=== PATIENT | male | born 1970 | race Caucasian/White ===

== ENCOUNTER 2016-08-01 10:35 | Day surgery (SDC) | payer MEDICARE ==
[~2016-08-01] VITALS: Ht 175.3 cm; Wt 109.1 kg
[2016-08-01 11:13] LABS: BASOPHILS 0.5 % (0.0-2.0); EOSINOPHILS 0.5 % (0-7); HEMATOCRIT 46.9 % (42.0-54.0); HEMOGLOBIN 16.2 g/dL (13.5-17.5); IMMATURE GRANULOCYTES 0.6 % (0-5); LYMPHOCYTES 24.4 % (15-50); MCH 31.6 pg (26.0-34.0); MCHC 34.5 g/dL (31.0-37.0); MCV 91.6 fL (80.0-100.0); MEAN PLATELET VOLUME 10.6 fL (7.4-10.4); MONOCYTES 10.7 % (2-11); NEUTROPHILS 63.3 % (40-80); PLATELET COUNT 276 10x3/uL (130-400); RBC 5.12 10x6/uL (4.20-6.10); RDW 13.8 % (11.5-14.5); WBC 10.2 10x3/uL (4.8-10.8)
[2016-08-01 11:29] LABS: CALC OSMOLALITY 280 mosm/kg (275-300); CALCIUM 9.4 mg/dL (8.5-10.1); CARBON DIOXIDE 25.1 mmol/L (21.0-32.0); CHLORIDE - SERUM 99 mmol/L (98-107); CREATININE - SERUM 1.1 mg/dL (0.6-1.3); GLUCOSE 257 mg/dL (74-106); POTASSIUM - SERUM 3.8 mmol/L (3.5-5.1); SODIUM 136 mmol/L (136-145); UREA NITROGEN 12 mg/dL (7-18); eGFR NON AFRICAN AMERICAN 77 mL/min (90-120)
[2016-08-01] MEDS ORDERED: FLOVENT HFA 11012 GM INH (11:37)
[2016-08-01] MEDS ORDERED: COREG6.25 MG PO (11:37)
[2016-08-01] MEDS ORDERED: LANTUS INSULIN10 ML SC (11:38)
[2016-08-01] MEDS ORDERED: GLUCOTROL 5 MG T5 MG PO (11:38)
[2016-08-01] MEDS ORDERED: REMERON45 MG PO (11:40)
[2016-08-01] MEDS ORDERED: LATUDA80 MG PO (11:40)
[2016-08-01] MEDS ORDERED: EFFEXOR75 MG PO (11:41)
[2016-08-01] MEDS ORDERED: VENTOLIN HFA18 GM INH (11:41)
[2016-08-01 12:04] VITALS: BP 130/87; Ht 175.3 cm; Wt 109.1 kg
--- NOTE | 2016-08-01 16:35 | NUR ---
PATIENT HAS URINATED LARGE AMOUNT IN TOILET, AMBULATED AROUND ROOM WITHOUT DIZZINESS OR UNSTEADINESS, RIGHT HAND PIV DC'D WITH TIP INTACT, PATIENT DRESSED IN PERSONAL CLOTHING. DISCHARGE INSTRUCTIONS REVIEWED WITH PATIENT, DISCHARGED HOME VIA WHEELCHAIR TO PRIVATE VEHICLE WITH FATHER
--- NOTE | 2016-08-23 12:04 | OP ---
PATIENT NAME: ABBY FREITAS MEDICAL RECORD: [id number] :70 LOCATION:[facility] ADMISSION DATE: SURGEON: HUMA MYERS DO DATE OF OPERATION: 08/01/2016 PROCEDURE: Colonoscopy. INDICATION: Hematochezia and lower abdominal pain, as well as a family history of colon cancer in his grandfather and his mother, who was recently diagnosed in her 60s. REFERRING PHYSICIAN: Haven Garcia MD. ADMINISTERED MEDICATIONS: Propofol 75 mg. DESCRIPTION OF PROCEDURE: The procedure, indications, preparation and potential complications were explained to the patient, who indicated understanding and signed the corresponding consent forms. IV anesthesia was administered by nurse telecom coordinator. Continuous pulse oximetry and blood pressure monitoring were used throughout the procedure as well as supplemental oxygen. The quality of the preparation was excellent. The patient was placed in the left lateral decubitus position. The colonoscope was introduced through the rectum and advanced under direct visualization to the cecum, confirmed by the appendiceal orifice and ileocecal valve. Careful visualization was performed and the instrument was withdrawn. The patient tolerance was excellent. The procedure was not difficult other than the significant amount of time required for multiple polyps which are incompletely removed at this time. FINDINGS: 1. There was normal mucosa throughout the entire colon. 2. Protruding lesions: The patient was noted to have multiple flat and sessile medium and large sized polyps present during insertion of the colonoscope. Polyps ranged in size from 6 mm up to 2.5 cm. In the ascending colon, 4 separate polyps were removed, which were approximately 1 cm in size. All of these polyps in the ascending colon were lifted with saline injection and endoscopic mucosal resection was performed for complete removal and retrieval of the polyps. In the transverse colon, 7 polyps also ranging from approximately 8 mm to 1.5 cm in size were removed without saline injection. Snare cautery polypectomy was performed on these polyps. The polyps were retrieved. In the transverse colon, multiple polyps were visualized, which were not retrieved at this time due to the length of the procedure time under anesthesia as well as the difficulty associated with these polyps and time required for removal. The patient will be returning for further removal within a month. A large semi-pedunculated, approximately 1.5 cm polyp was removed from the sigmoid colon using snare cautery polypectomy and was completely retrieved. Again, multiple polyps were visualized in the descending colon along with the transverse, as well as the sigmoid colon which will be removed at a later date. COMPLICATIONS: None. ESTIMATED BLOOD LOSS: Minimal. PLAN: Repeat colonoscopy within 1 month's time for further removal of polyps until the colon has been effectively eradicated of polyps. OPERATIVE REPORT [id number] ABBY FREITAS TRANSINT:[id number] Voice Confirmation ID: [id number] DOCUMENT ID: [id number] HUMA MYERS DO at 1204 CC: [id number] DICTATION DATE: 08/01/16 1524 DEAN OF GRADUATE STUDIES: 08/01/16 2248 [facility] 08/01/16 [id number] [place] [address]
== END 2016-08-01 16:35 | disposition home or self-care (01) ==
LOC: D.OPS 10:35
PROVIDERS: Anesthesiology
DX: D12.2 Benign neoplasm of ascending colon (principal); D12.3 Benign neoplasm of transverse colon; D12.5 Benign neoplasm of sigmoid colon; Z80.0 Family history of malignant neoplasm of digestive organs

== ENCOUNTER 2016-10-03 08:54 | Day surgery (SDC) | payer MEDICARE ==
[~2016-10-03] VITALS: Ht 175.3 cm; Wt 109.1 kg
[~2016-10-03 08:54] MED LIST: COREG6.25 MG PO; EFFEXOR75 MG PO; FLOVENT HFA 11012 GM INH; GLUCOTROL 5 MG T5 MG PO; LANTUS INSULIN10 ML SC; LATUDA80 MG PO; REMERON45 MG PO; VENTOLIN HFA18 GM INH
[2016-10-03 10:15] VITALS: BP 116/70; Ht 175.3 cm; Wt 109.1 kg
[2016-10-03 10:58] LABS: HEMATOCRIT 48.9 % (42.0-54.0); HEMOGLOBIN 16.5 g/dL (13.5-17.5); MCHC 33.7 g/dL (31.0-37.0); MCV 91.9 fL (80.0-100.0); MEAN PLATELET VOLUME 10.9 fL (7.4-10.4); RBC 5.32 10x6/uL (4.20-6.10); RDW 13.7 % (11.5-14.5); WBC 8.1 10x3/uL (4.8-10.8)
[2016-10-03 11:26] LABS: CALC OSMOLALITY 278 mosm/kg (275-300); CALCIUM 9.6 mg/dL (8.5-10.1); CHLORIDE - SERUM 102 mmol/L (98-107); POTASSIUM - SERUM 4.3 mmol/L (3.5-5.1); SODIUM 137 mmol/L (136-145); UREA NITROGEN 12 mg/dL (7-18); eGFR NON AFRICAN AMERICAN 86 mL/min (90-120)
[2016-10-03 11:27] LABS: GLUCOSE 191 mg/dL (74-106)
--- NOTE | 2016-10-03 12:06 | NUR ---
1206-TATTOO COLON WITH 2.5CC CRYSTAL INK.
--- NOTE | 2016-10-03 13:27 | NUR ---
1325 PASSED AIR; DIET SERVED
--- NOTE | 2016-10-03 13:55 | NUR ---
DISCHARGE INSTRUCTIONS REVIEWED, DISCHARGED HOME VIA WHEELCHAIR TO PRIVATE VEHICLE WITH FAMILY MEMBER
--- NOTE | 2016-10-06 12:18 | OP ---
PATIENT NAME: ABBY FREITAS MEDICAL RECORD: [id number] :70 LOCATION:[facility] ADMISSION DATE: SURGEON: HUMA MYERS DO DATE OF OPERATION: 10/03/2016 PROCEDURE: Colonoscopy with endoscopic mucosal resection, some mucosal injection of tattoo, and endoclipping for hemostasis. INDICATIONS FOR PROCEDURE: Lower abdominal pain, family history of colon cancer in his grandfather, hematochezia, and known polyps visualized on recent examination. SCOPE: Howbuy video pediatric colonoscope. MEDICATIONS: Propofol 1650 mg IV per anesthesia. ESTIMATED BLOOD LOSS: Less than 3 cc. Withdrawal time greater than 15 minutes. FINDINGS: Informed consent was given. The patient was made comfortable with the above medication. After reaching an adequate level of sedation by slow IV push, the patient was placed on his left side. A digital rectal examination was performed and was normal. The endoscope was then advanced through the anus under direct visualization and advanced to the cecum, evidenced by the appendiceal orifice and ileocecal valve. Scope was then withdrawn slowly as the mucosa was carefully examined. In the ascending colon, there was 2 polyps visualized, which measured approximately 8-mm to 1 cm. Both of these polyps were raised with saline prior to using a hot snare for polypectomy and endoscopic mucosal resection technique. The scope was withdrawn further into the transverse colon where a 4 large polyps measuring from 8-mm in size to 2 cm in size were visualized. Each of these polyps were raised with saline and removed with hot snare polypectomy in endoscopic mucosal resection technique. The scope was further withdrawn to the descending colon where a single small polyp measuring approximately 6-mm in size was visualized as well as a large polyp measuring approximately 2.5 cm in size was visualized. The smaller polyp was removed with hot snare polypectomy alone. The second polyp was lifted with saline at the base of its stalk and removed with a hot snare polypectomy and endoscopic mucosal resection technique. There was a defect left behind. To prevent bleeding, It was close with a single endoclip successfully. A tattoo was placed both proximally and distally to this site. Tattoo was also placed proximally and distally to the 4 large polyps in the transverse colon. The scope was then withdrawn from the patient. The patient tolerated the procedure well and there were no complications. This was a difficult and extended, lengthy procedure. IMPRESSION: Two ascending polyps as described above, removed with hot snare after lifting, 4 transverse polyps as described above, lifted and hot snared as well as tattoo placed, 2 descending colon polyps lifted and hot snared as described above as well as tattoo placement and endoclipping. PLAN AND RECOMMENDATIONS: 1. Discharge home when recovery parameters are met. 2. Continue current diet. 3. Continue current medications. OPERATIVE REPORT [id number] ABBY FREITAS 4. Repeat colonoscopy in 3 months for complete visualization of the colon, biopsies as indicated and cleaning up of any residual tissue, which may be present. If these polyps to show that there is any cancer within them, then a surgical resection after referral to surgery may be considered. We will follow up biopsy specimen results and further recommendations as indicated. TRANSINT:[id number] Voice Confirmation ID: [id number] DOCUMENT ID: [id number] HUMA MYERS DO at 1218 CC: [id number] DICTATION DATE: 10/03/16 1255 GEODETIC SURVEYOR TECHNOLOGIST: 10/03/16 2251 [facility] 10/03/16 [facility] [address] [place] [address]
== END 2016-10-03 13:55 | disposition home or self-care (01) ==
LOC: D.OPS 08:54
PROVIDERS: Anesthesiology
DX: D12.2 Benign neoplasm of ascending colon (principal); D12.3 Benign neoplasm of transverse colon; D12.4 Benign neoplasm of descending colon; K92.1 Melena; Z80.0 Family history of malignant neoplasm of digestive organs; F17.200 Nicotine dependence, unspecified, uncomplicated; E11.9 Type 2 diabetes mellitus without complications; J44.9 Chronic obstructive pulmonary disease, unspecified; J45.909 Unspecified asthma, uncomplicated; Z01.812 Encounter for preprocedural laboratory examination

== ENCOUNTER 2017-01-02 07:21 | Day surgery (SDC) | payer MEDICARE ==
[~2017-01-02] VITALS: Ht 175.3 cm; Wt 117.3 kg
[2017-01-02 08:13] VITALS: BP 149/89; Ht 175.3 cm; Wt 117.3 kg
[2017-01-02 08:32] LABS: BASOPHILS 0.4 % (0-2); EOSINOPHILS 0.7 % (0-7); HEMATOCRIT 45.8 % (42.0-54.0); HEMOGLOBIN 15.7 g/dL (13.5-17.5); IMMATURE GRANULOCYTES 0.5 % (0-5); LYMPHOCYTES 27.7 % (15-50); MCH 31.2 pg (26.0-34.0); MCHC 34.3 g/dL (31.0-37.0); MCV 91.1 fL (80.0-100.0); MEAN PLATELET VOLUME 10.4 fL (7.4-10.4); NEUTROPHILS 59.7 % (40-80); PLATELET COUNT 267 10x3/uL (130-400); RBC 5.03 10x6/uL (4.20-6.10); RDW 14.1 % (11.5-14.5)
[2017-01-02 09:19] LABS: CALC OSMOLALITY 274 mosm/kg (275-300); CALCIUM 8.9 mg/dL (8.5-10.1); CARBON DIOXIDE 23.1 mmol/L (21.0-32.0); CHLORIDE - SERUM 101 mmol/L (98-107); CREATININE - SERUM 0.9 mg/dL (0.6-1.3); GLUCOSE 177 mg/dL (74-106); POTASSIUM - SERUM 3.8 mmol/L (3.5-5.1); SODIUM 136 mmol/L (136-145); UREA NITROGEN 9 mg/dL (7-18); eGFR NON AFRICAN AMERICAN > 90 mL/min (90-120)
--- NOTE | 2017-01-03 14:43 | OP ---
PATIENT NAME: ABBY FREITAS MEDICAL RECORD: [id number] :70 LOCATION:[facility] ADMISSION DATE: SURGEON: HUMA MYERS DO DATE OF OPERATION: 01/02/2017 PROCEDURE: Colonoscopy with polypectomy. INDICATIONS: Family history of colon cancer in grandfather and strong history of numerous colon polyps. His last procedure was 10/03/2016 and over 10 large polyps were removed at that time, one with low-grade atypia in the descending colon. SCOPE: Olympus video pediatric colonoscope. MEDICATIONS: Propofol 400 mg IV per anesthesia. WITHDRAWAL TIME: Approximately 40 minutes. ESTIMATED BLOOD LOSS: Minimal. COMPLICATIONS: None. FINDINGS: Informed consent was given. The patient was made comfortable with the above medication. After reaching an adequate level of sedation by slow IV push, the patient was placed on his left side. A digital rectal examination was performed and was normal. The endoscope was then advanced under direct visualization through the rectum to the cecum and terminal ileum. The scope was slowly withdrawn and mucosa was carefully examined. The prep was good. On this examination as previous exams, there were multiple polyps visualized. There were 3 benign-appearing sessile polyps located in the ascending colon, which measured in size from 4 to 8 mm in diameter. They were all removed using a hot snare in 1 piece and completely retrieved. There were 4 separate polyps located in the descending colon. Three were benign-appearing and sessile and were removed with hot snares in 1 piece and completely retrieved. The final polyp was a site that was previously tattooed and located at 45 cm. On the last procedure, it had some focal low grade atypia. There was some residual tissue visualized here, which was biopsied with cold forceps multiple times. After this, cautery was performed around the entire area and at the base of the remaining polypoid tissue that was removed. In the sigmoid colon, there were 3 polyps, which were benign-appearing and sessile, ranging in size from 3 to 5 mm. They were removed using a combination of hot snare and hot forceps in 1 piece and completely retrieved. There was a single polyp in the rectum, which was benign-appearing and sessile, measuring approximately 5 mm in diameter, which was removed with a hot snare. Retroflexion was performed in the rectum. The scope was then withdrawn from the patient. The patient tolerated the procedure well and there were no complications. IMPRESSION: Multiple polyps as described above. PLAN AND RECOMMENDATIONS: 1. Discharge home when recovery parameters are met. 2. Follow up biopsy specimen results. 3. Continue current medications. 4. Continue current diet. 5. Recall colonoscopy in 1 year due to the excessive number of polyps, which OPERATIVE REPORT [id number] ABBY FREITAS have been removed, pending results of biopsy specimens. If there is continued atypia at the site of the descending polyp located at approximately 45 cm that has been tattooed, a sooner recall may be made for another reevaluation. TRANSINT:[id number] Voice Confirmation ID: [id number] DOCUMENT ID: [id number] HUMA MYERS DO at 1443 CC: [id number] DICTATION DATE: 01/02/17 1013 MACHINE SIGN WRITER: 01/02/17 1220 [facility] 01/02/17 [id number] [place] [address]
== END 2017-01-02 10:55 | disposition home or self-care (01) ==
LOC: D.OPS 07:21
PROVIDERS: Anesthesiology
DX: D12.4 Benign neoplasm of descending colon (principal); D12.5 Benign neoplasm of sigmoid colon; D12.8 Benign neoplasm of rectum; K63.5 Polyp of colon; Z86.010 Personal history of colon polyps; Z80.0 Family history of malignant neoplasm of digestive organs; Z01.812 Encounter for preprocedural laboratory examination

== ENCOUNTER 2018-04-23 06:44 | Day surgery (SDC) | payer MEDICARE ==
[~2018-04-23] VITALS: Ht 175.3 cm; Wt 97.7 kg
--- NOTE | ~2018-04-23 | OP ---
PATIENT NAME: ABBY FREITAS MEDICAL RECORD: [id number] :70 LOCATION:[facility] ADMISSION DATE: SURGEON: HUMA MYERS DO DATE OF OPERATION: 04/23/2018 PROCEDURE: Colonoscopy with polypectomy. INDICATIONS FOR PROCEDURE: Family history positive for colon cancer in the patient's grandfather and the patient has a strong personal history of colon polyps with his last colonoscopy being performed on 01/02/2017. SCOPE: Olympus video pediatric colonoscope. MEDICATIONS: Propofol 450 mg IV per anesthesia. WITHDRAWAL TIME: 29 minutes. ESTIMATED BLOOD LOSS: Minimal. COMPLICATIONS: None. FINDINGS: Informed consent was given. The patient was made comfortable with the above medication. After reaching an adequate level of sedation by slow IV push, the patient was placed on his left side. A digital rectal examination was performed and revealed some enlarged prostate. The endoscope was advanced under direct visualization through the rectum to the cecum, confirmed by the presence of the appendiceal orifice. The endoscope was slowly withdrawn and mucosa was carefully examined. Prep quality was fair. There were 5 polyps visualized on today's examination. The first was located in the ascending colon. It was a benign appearing sessile polyp, which measured approximately 4 mm in diameter. It was removed using a hot snare. The next polyp was located in the descending colon. It was a benign appearing sessile polyp, which measured approximately 4 mm and was removed using a hot snare. In the sigmoid colon, there were 3 separate polyps, which were benign-appearing and sessile. They ranged in size from 3-5 mm in diameter. They were all removed using hot forceps. Retroflexion was performed in the rectum with visualization of grade I internal hemorrhoids without bleeding. The endoscope was withdrawn from the patient. The patient tolerated the procedure well and there were no complications. IMPRESSION: 1. Five polyps as described above, removed using a combination of hot snare and hot forceps. 2. Grade I internal hemorrhoids without bleeding. PLAN AND RECOMMENDATIONS: 1. Discharge home when recovery parameters are met. 2. Follow up biopsy specimen results. 3. High fiber diet. 4. Continue current medications. 5. Recall colonoscopy in 2 years. TRANSINT:[id number] Voice Confirmation ID: [id number] DOCUMENT ID: [id number] OPERATIVE REPORT [id number] ABBY FREITAS HUMA MYERS DO at 1012 CC: [id number] DICTATION DATE: 04/23/18 0904 TRESTLE BUILDER: 04/23/18 1115 [facility] 04/23/18 [address] [place] [address]
[2018-04-23 07:02] LABS: HEMATOCRIT 48.5 % (42.0-54.0); HEMOGLOBIN 16.6 g/dL (13.5-17.5); MCH 31.2 pg (26.0-34.0); MCHC 34.2 g/dL (31.0-37.0); MCV 91.2 fL (80.0-100.0); MEAN PLATELET VOLUME 10.3 fL (7.4-10.4); RBC 5.32 10x6/uL (4.20-6.10); WBC 12.4 10x3/uL (4.8-10.8)
[2018-04-23 07:15] LABS: CALC OSMOLALITY 278 mosm/kg (275-300); CALCIUM 9.6 mg/dL (8.5-10.1); CARBON DIOXIDE 26.4 mmol/L (21.0-32.0); CHLORIDE - SERUM 104 mmol/L (98-107); CREATININE - SERUM 1.1 mg/dL (0.6-1.3); POTASSIUM - SERUM 4.4 mmol/L (3.5-5.1); SODIUM 140 mmol/L (136-145); UREA NITROGEN 9 mg/dL (7-18); eGFR NON AFRICAN AMERICAN 76 mL/min (90-120)
[2018-04-23 07:19] LABS: GLUCOSE 115 mg/dL (74-106)
[2018-04-23 07:25] VITALS: BP 141/86; Ht 175.3 cm; Wt 97.7 kg
== END 2018-04-23 09:47 | disposition home or self-care (01) ==
LOC: D.OPS 06:44
PROVIDERS: Anesthesiology
DX: K63.5 Polyp of colon (principal); K64.0 First degree hemorrhoids

== ENCOUNTER 2019-07-20 16:35 | Inpatient (IN) | payer MEDICARE ==
[~2019-07-20] VITALS: Ht 175.3 cm; Wt 99.2 kg
--- NOTE | ~2019-07-20 | HEMODYNAMI ---
PATIENT:ABBY FREITAS MEDICAL RECORD: [id number] : 70 [id number] ADMISSION DATE: 07/20/19 Generatedon:07/22/201915:53 Patient name: ABBY FREITAS Patient #: [id number] SSN: [id number] : 1970 Date of study: 07/22/2019 Page: Of Hemodynamic Procedure Report Patient Data Patient Demographics Procedure consent was obtained First Name: ABBY Gender: Male Last Name: ZENA : 1970 Middle Initial: D Age: 48 year(s) Patient #: [id number] Race: SSN: [id number] Additional ID: [id number] Contact details [address]: [address] [place] [address] State: [place] City: [place] Zip code: [address] Past Medical History Allergies Allergen Reaction Date Comments Reported Other allergy 07/07/2019 keflex Other allergy 07/22/2019 CEPHALAXIN Admission Admission Data Admission Date: 07/20/2019 Admission Time: 18:22 Arrival Date: 07/22/2019 Arrival Time: 0:00 Admit Source: Other Insurance Payor: Medicare Room #: D.2117 [facility] #: [id number] Height (in.): 69 BSA: 1.91 (m2) Height (cm.): 175.26 BMI: 24.42 (kg/m2) Weight (lbs.): 165.35 Weight (kg.): 75 Lab Results Lab Result Date: 07/22/2019 Lab Result Time: 0:00 Biochemistry Name Units Result Min Max BUN mg/dl 12 --(-*--)-- 7 18 Creatinine mg/dl 0.9 --(-*--)-- 0.6 1.3 eGFR ml/min 90 --(*---)-- 90 120 NONAFRICAN CBC Name Units Result Min Max Hematocrit % 42.9 --(*---)-- 42 54 Hemoglobin g/dl 14.3 --(*---)-- 13.5 17.5 Procedure Procedure Types Cath Procedure Diagnostic Procedure FFR/IVUS FFR Initial FFR Additional PCI Procedure Coronary Stent Coronary Stent Initial x2 Coronary Stent Additional Hemochron ACT Test Procedure Description Procedure Date Procedure Date: 07/22/2019 Procedure Start Time: 15:26 Procedure End Time: 15:50 Procedure Staff Name Function Johnny Salazar MD Performing Physician Karen Lassiter RT Monitor Judy Zimmerman RT Scrub Jayleen Longoria RN Nurse Arianna Graf RT Health Care / Medical Job Titles Indication Coronary risk factors Procedure Data Cath Procedure Fluoroscopy Diagnostic fluoroscopy Total fluoroscopy Time: 4.5 time: 4.5 min min Diagnostic fluoroscopy Total fluoroscopy dose: 486 dose: 486 mGy mGy Contrast Material Contrast Material Type Amount (ml) Isovue 370 100 Entry Location Entry Primary Successful Side Size Upsize Upsize Entry Closure Succes sful Closure Location (Fr) 1 (Fr) 2 (Fr) Remarks Device Remarks Femoral Right 6 Fr Exoseal artery Short Estimated blood loss: 10 ml Procedure Complications No complications Procedure Medications Medication Administration Route Dosage Oxygen etCO2 Nasal cannula 2 l/min Lidocaine 2% added to field 20 Heparin Flush Bag added to field 2 bags (1000units/500ml NS) 0.9% NaCl I.V. 100 ml/hr Versed I.V. 2 mg Fentanyl I.V. 100 mcg Versed I.V. 1 mg Fentanyl I.V. 50 mcg Heparin Bolus I.V. 4000 units Hemodynamics Rest BSA: 1.91 (m2) HGB: 14.3 (g/dl) O2 Consumption: Estimated: 228.32 (ml/min) O2 Co nsumption indexed: Estimated:119.54 (ml/min/m) Heart Rate: 69 (bpm) Snapshots Pre Cath Intra NCS Post Cath Vital Signs Time Heart Resp SPO2 etCO2 NIBP (mmHg) Rhythm Pain Sedation Rate (ipm) (%) (mmHg) Status Level (bpm) 15:16:04 66 15 97 31 133/96(106) NSR (Missing) 10(A) 15:20:12 67 14 95 27.4 120/87(102) NSR (Missing) 10(A) 15:24:17 64 17 94 28.8 114/80(96) NSR (Missing) 10(A) 15:28:23 61 13 94 21.4 109/76(86) NSR (Missing) 9(A) 15:32:25 63 12 94 38.5 112/76(93) NSR (Missing) 9(A) 15:36:31 66 12 93 34.8 118/75(89) NSR (Missing) 9(A) 15:40:38 69 13 94 30.3 111/72(86) NSR (Missing) 9(A) 15:44:40 79 14 95 34.1 112/81(92) NSR (Missing) 10(A) 15:48:44 69 12 95 38.5 121/81(92) NSR (Missing) 10(A) Medications Time Medication Route Dose Verified Delivered Reason Notes Effectiveness by by 15:20:36 Oxygen etCO2 2 Johnny Buffie used for Nasal l/min Martin Longoria RN procedure cannula 15:20:45 Lidocaine 2% added 20ml Johnny Johnny for local to vial Martin Salazar MD anesthetic field 15:20:51 Heparin Flush added 2 Johnny Johnny used for Bag to bags Martin Salazar MD procedure (1000units/500ml field NS) 15:21:01 0.9% NaCl I.V. 100 Johnny Buffie Per physician ml/hr Martin Longoria RN 15:22:12 Versed I.V. 2 mg Johnny Buffie for sedation Martin Longoria RN 15:22:17 Fentanyl I.V. 100 Johnny Buffie for sedation mcg Martin Longoria RN 15:29:53 Versed I.V. 1 mg Johnny Buffie for sedation Martin Longoria RN 15:29:57 Fentanyl I.V. 50 Johnny Buffie for sedation mcg Martin Longoria RN 15:30:45 Heparin Bolus I.V. 4000 Johnny Buffie for verif ied units Martin Longoria RN anticoagulation with dr salazar Procedure Log Time Note 15:02:16 Arianna Graf RT(R) sent for patient. Start room use. 15:04:41 Informed consent obtained and on chart 15:05:28 Indication : Coronary risk factors 15:07:03 Procedure Status Elective Heart Cath (OP), PCI. 15:07:09 Admit Source: Other 15:07:25 Time tracking: Regular hours (M-F 7:00 - 5:00) 15:07:30 Plan of Care:Hemodynamics will remain stable., Cardiac rhythm will remain stable., Comfort level will be maintained., Respiratory function will remain adequate., Patient/ family verbilizes understanding of procedure., Procedure tolerated without complication., Recovers from procedure without complications.. 15:07:46 Patient received from Med II to CCL 3 Alert and oriented. Tansferred to table in Supine position. 15:07:48 Warm blankets applied, and keyona hugger turned on for patient comfort. 15:07:48 Correct patient and procedure confirmed by team. 15:07:49 ECG and BP/O2 sat monitors applied to patient. 15:07:59 H&P Date Dictated: 07/20/2019 Within 30 days and on chart.. 15:08:00 Pre-procedure instructions explained to patient. 15:08:01 Pre-op teaching completed and patient verbalized understanding. 15:08:03 Family unavailable. 15:08:05 Patient NPO since Midnight. 15:08:43 Is the patient allergic to Iodine/contrast media? No. 15:08:45 Was the patient premedicated? N/A 15:08:47 Is patient on blood thinner?Yes 15:09:14 ACC The patient was administered the following blood thiners within the last 24 hours: ACCPlavix 15:09:16 Patient diabetic? Yes. 15:09:44 If diabetic: On Metformin? Yes 15:10:31 Arrival Date: 07/22/2019 12:00:00 AM 15:10:35 Insurance Payor : Medicare 15:11:00 Patient Height : 69 inches 15:11:05 Patient Weight : 165.35 lbs 15:11:12 If on Metformin: Last Dose? 07/21/2019 15:11:13 ----Pre-sedation anethsthesia assessment.---- 15:11:16 Previous problem with sedation/anesthesia? No ? 15:11:17 Snore? Yes 15:11:19 Sleep apnea? No 15:11:20 Deviated septum? No 15:11:21 Opens mouth fully? Yes 15:11:22 Sticks out tongue? Yes 15:11:28 Airway obstruction? Yes COPD 15:11:32 Dentures? Yes IN TIGHT 15:11:36 Pre procedure: right dorsailis pedis pulse 2+ Normal; easily identifiable; not easily obliterated 15:11:39 Patient pain scale 0/10 ?. 15:11:47 Lab results completed and on chart. 15:11:56 IV patent on arrival in right hand with 0.9% NaCl at [facility]. 15:12:32 Lab Result : BUN 12 mg/dl 15:12:32 Lab Result : Creatinine 0.9 mg/dl 15:12:32 Lab Result : eGFR NONAFRICAN 90 ml/min 15:12:32 Lab Result : Hemoglobin 14.3 g/dl 15:12:32 Lab Result : Hematocrit 42.9 % 15:14:04 Risk of Mortality: 0.1 15:14:07 Risk of blood transfusion: 0.2 15:14:10 Risk of ANDREW: 0.6 15:14:13 Right groin area was prepped with chlora-prep and draped in sterile fashion 15:14:14 Alarms reviewed by R. N. 15:14:15 Sharps counted by scrub and verified by R.N. 15:14:19 Stress Test: no; N/A ? 15:14:30 Procedure type changed to Cath procedure, Diagnostic procedure, FFR/IVUS, FFR Initial, FFR Additional, PCI procedure, Coronary Stent, Coronary Stent Initial x2, Coronary Stent Additional, Hemochron ACT Test 15:14:36 Use device set Femoral Dx 15:14:37 ACIST Syringe (45647) opened to sterile field. 15:14:38 Bag Decanter () opened to sterile field. 15:14:38 Medline Cath Pack ([id number]) opened to sterile field. 15:14:40 ACIST Hand Control (04928) opened to sterile field. 15:14:40 ACIST Manifold (50837) opened to sterile field. 15:14:43 EMERALD Guide Wire (339-576) opened to sterile field. 15:14:44 DIAGNOSTIC Multipack 5Fr catheter set ([id number]) opened to sterile field. 15:14:54 Use device set TAUTH PCI 15:14:56 SHEATH 6FR Hollywood (UID594) opened to sterile field. 15:14:59 INFLATOR Merit BasixCompak (IH9684) opened to sterile field. 15:15:05 Vital chart was started 15:15:06 Baseline sample Acquired. 15:15:07 Full Disclosure recording started 15:15:16 Rhythm: sinus rhythm 15:17:42 Patient allergic to Other allergyCEPHALAXIN 15:17:47 Diagnostic Cath Status : Elective 15:20:36 Oxygen 2 l/min etCO2 Nasal cannula was administered by Jayleen Longoria RN; used for procedure; Verbal order read back and verified. 15:20:45 Lidocaine 2% 20ml vial added to field was administered by Johnny Salazar MD; for local anesthetic; Verbal order read back and verified. 15:20:51 Heparin Flush Bag (1000units/500ml NS) 2 bags added to field was administered by Johnny Salazar MD; used for procedure; Verbal order read back and verified. 15:21:01 0.9% NaCl 100 ml/hr I.V. was administered by Jayleen Longoria RN; Per physician; Verbal order read back and verified. 15:21:46 --------ALL STOP TIME OUT------ 15:21:46 Final Timeout: patient, procedure, and site verified with staff and physician. All members of the team are in agreement. 15:21:48 Right groin site verified by team. 15:21:53 Fire Safety Assessment: A--An alcohol-based skin anteseptic being used preoperatively., C--Open oxygen or nitrous oxide is being used., D--An ESU, laser, or fiber-optic light is being used. 15:21:58 Physical assessment completed. ASA score P 2 - A patient with mild systemic disease as per Johnny Salazar MD. 15:22:01 1) 90+ Normal kidney functon but urine findings or structural abnormalities or genetic trait point to kidney disease. 15:22:05 Maximum allowable contrast dose (3.7 X eGFR X 0.75)250 ml. 15:22:10 Sedation plan: IV Moderate Sedation Medication:Versed, Fentanyl 15:22:12 Versed 2 mg I.V. was administered by Jayleen Longoria RN; for sedation; Verbal order read back and verified. 15:22:17 Fentanyl 100 mcg I.V. was administered by Jayleen Longoria RN; for sedation; Verbal order read back and verified. 15:26:26 Procedure started. 15:26:30 Local anesthetic to right femoral artery with Lidocaine 2% by Johnny Salazar MD.INITIAL ACCESS ONLY 15:27:01 A 6 Fr Short sheath was inserted into the Right Femoral artery 15:28:19 GUIDE 6FR AR 2.0 catheter ([id number]) opened to sterile field. 15:28:27 Indore Verrata Plus pressure wire (01430L) opened to sterile field. 15:28:32 GUIDE 6FR XBLAD 3.5 catheter ([id number]) opened to sterile field. 15:29:02 6 Fr AR 2 guide catheter was inserted over the wire 15:29:06 FFR/IFR wire advanced. 15:29:53 Versed 1 mg I.V. was administered by Jayleen Longoria RN; for sedation; Verbal order read back and verified. 15:29:57 Fentanyl 50 mcg I.V. was administered by Jayleen Longoria RN; for sedation; Verbal order read back and verified. 15:30:45 Heparin Bolus 4000 units I.V. was administered by Jayleen Longoria RN; for anticoagulation; verified with dr salazar Verbal order read back and verified. 15:30:51 mRCA lesion measured at .71 with IFR 15:31:53 Pre PCI Site: [place] mRCA has 90% stenosis. 15:31:59 Pre PCI Site: [place] PDA has 90% stenosis. 15:32:54 Place stent Inflation Number: 1 A MARQUISE RX 2.5 x 15 stent ([id number]) was prepped and advanced across the R PDA . The stent was deployed at 13 CELINA for 0:00 (min:sec) . 15:33:00 Stent catheter was removed intact over wire. 15:33:49 Wire redirected to RCA. 15:34:37 Place stent Inflation Number: 1 A MARQUISE RX 3.5 x 15 stent ([id number]) was prepped and advanced across the Dist RCA . The stent was deployed at 11 CELINA for 0:00 (min:sec) . 15:35:42 Stent catheter was removed intact over wire. 15:35:42 Wire removed. 15:36:09 Guide catheter removed. 15:36:12 6 Fr XBLAD 3.5 guide catheter was inserted over the wire 15:37:26 FFR/IFR wire advanced. 15:39:02 dCirc lesion measured at .78 with IFR 15:39:25 Pre PCI Site: [place] dCirc has 75% stenosis. 15:40:33 GUIDE 6FR XBLAD 4.0 catheter ([id number]) opened to sterile field. 15:41:03 Place stent Inflation Number: 1 A MARQUISE RX 3.0 x 12 stent ([id number]) was prepped and advanced across the Dist CX . The stent was deployed at 13 CELINA for 0:00 (min:sec) . 15:41:50 Stent catheter was removed intact over wire. 15:41:50 Wire removed. 15:41:51 Guide catheter removed. 15:41:55 EXOSEAL 6Fr (EX600) opened to sterile field. 15:42:04 Sheath removed intact; hemostasis achieved with Exoseal to the Right Femoral artery. 15:43:25 Procedure ended.(Physican Out) 15:43:37 Fluoroscopy time 04.50 minutes. 15:43:44 Flurop Dose total: 486 15:43:44 Fluoroscopy dose: 486 mGy 15:43:55 Dose Area Product 86398 mGy/cm. 15:44:00 Contrast amount:Isovue 370 100ml. 15:44:02 Maximum allowable dose exceeded? No. 15:44:03 Sharps counted by scrub and verified by R.N. 15:44:07 Post-op/insertion site Right Femoral artery dressed using a 4 x 4 and Tegaderm. 15:44:12 Post right femoral artery:stable, soft, clean and dry 15:44:14 Post Procedure Pulses reassessed and unchanged 15:44:17 Post procedure: right dorsailis pedis pulse 2+ Normal; easily identifiable; not easily obliterated. 15:44:20 Post-procedure physical assessment completed. ASA score P 2 - A patient with mild systemic disease as per Johnny Salazar MD. 15:44:23 Post procedure rhythm: unchanged. 15:44:25 Estimated blood loss: 10 ml 15:44:27 Post procedure instruction explained to patient.Patient verbalizes understanding. 15:44:27 Patient needs reinforcement of post procedure teaching. 15:46:43 ACT drawn and resulted at 221 seconds. (normal therapeutic range 180-240 seconds). 15:49:45 Procedure and supply charges have been captured, reviewed, submitted and are correct. 15:49:49 Procedure Complication : No complications 15:49:53 Vital chart was stopped 15:49:55 [facility] Findings: MVD- PCI performed (see procedure note) 15:49:56 Operative report dictated upon procedure completion. 15:49:57 See physician's report for complete and final results. 15:50:01 Report given to [facility] II. 15:50:05 Patient transfered to [facility] with Bed. 15:50:07 Procedure ended. 15:50:07 Full Disclosure recording stopped 15:50:17 ACC-PCI Only Patient was given prescriptions, or instructed by Johnny Salazar MD to start/continue the following medications upon discharge: Plavix 15:50:18 End room use (Document Last) 15:52:23 End room use (Document Last) 15:53:00 End room use (Document Last) Intervention Summary Intervention Notes Time ActionType Lesion and Equipment Used Action# Pressure Duration Attributes 15:32:54 Place stent R PDA MARQUISE RX 2.5 x 1 13 00:00 15 stent ([id number]) 15:34:37 Place stent Dist RCA MARQUISE RX 3.5 x 1 11 00:00 15 stent ([id number]) 15:41:03 Place stent Dist CX MARQUISE RX 3.0 x 1 13 00:00 12 stent ([id number]) Device Usage Item Name Manufacture Quantity Catalog Hospital Part Current Minimal Lot# / Number Charge Number Stock Stock Serial# Code ACIST Syringe Acist 1 07389 348559 664388 252069 20 (53347) Medical Systems Inc Bag Decanter Microtek 1 2001S 120316 78397 185653 5 (2001S) Medical Inc. Medline Cath Medline 1 [id number] 944310 64076 243506 5 Pack ([id number]) ACIST Hand Acist 1 48188 828351 829328 787633 5 Control Medical (58587) Systems Inc ACIST Manifold Acist 1 09874 819230 128013 310823 5 (62673) Medical Systems Inc EMERALD Guide Cardinal 1 502-455 551739 073083 569763 5 Wire (502-455) Health DIAGNOSTIC Cardinal 1 LO2368 515038 17672 446198 30 Multipack 5Fr Health catheter set (XQ2554) SHEATH 6FR Terumo 1 WMO945 458708 814975 926071 40 Hollywood (XBE042) INFLATOR Merit Merit 1 ER7839 082215 380143 004939 15 Health Enhancement Products (GB5010) GUIDE 6FR AR Medtronic 1 [id number] 365972 17538 467700 1 2.0 catheter (QR0ZH26) Indore Indore 1 67271J 562551 788567146 611924 5 Verrata Plus pressure wire (89417S) GUIDE 6FR Cardinal 1 [id number] 958628 717530 913375 10 XBLAD 3.5 Health catheter ([id number]) MARQUISE RX 2.5 x Medtronic 1 [id number] 478863 1802956 150624 5 [id number] 15 stent ([id number]) MARQUISE RX 3.5 x Medtronic 1 [id number] 780176 1769935 245659 5 [id number] 15 stent ([id number]) GUIDE 6FR Cardinal 1 [id number] 064715 379074 138256 3 XBLAD 4.0 Health catheter ([id number]) MARQUISE RX 3.0 x Medtronic 1 [id number] 352432 8063821 159243 5 [id number] 12 stent ([id number]) EXOSEAL 6Fr Cardinal 1 EX600 499710 160480 155620 10 (EX600) Health Signature Audit [place] Stage Time Signature Unsigned Intra-Procedure 07/22/2019 Karen Lassiter 3:52:23 PM RT(R) Intra-Procedure 07/22/2019 Jayleen Longoria RN 3:53:00 PM Intra-Procedure 07/22/2019 Johnny Salazar 3:53:18 PM [facility] [address] [place] [address]
[2019-07-20 18:05] LABS: BASOPHILS 0.8 % (0-2); EOSINOPHILS 1.4 % (0-7); HEMATOCRIT 42.9 % (42.0-54.0); HEMOGLOBIN 14.3 g/dL (13.5-17.5); IMMATURE GRANULOCYTES 0.6 % (0-5); LYMPHOCYTES 26.1 % (15-50); MCHC 33.3 g/dL (31.0-37.0); MCV 93.1 fL (80.0-100.0); NEUTROPHILS 61.1 % (40-80); RBC 4.61 10x6/uL (4.20-6.10); RDW 14.1 % (11.5-14.5); WBC 7.9 10x3/uL (4.8-10.8)
[2019-07-20 18:08] LABS: PLATELET COUNT 384 10x3/uL (130-400)
[2019-07-20 18:19] LABS: CALC OSMOLALITY 285 mosm/kg (275-300); CARBON DIOXIDE 26.6 mmol/L (21.0-32.0); CHLORIDE - SERUM 105 mmol/L (98-107); CREATININE - SERUM 0.9 mg/dL (0.6-1.3); POTASSIUM - SERUM 3.8 mmol/L (3.5-5.1); SODIUM 141 mmol/L (136-145); UREA NITROGEN 12 mg/dL (7-18); eGFR NON AFRICAN AMERICAN > 90 mL/min (90-120)
[2019-07-20 18:20] LABS: APTT 32.6 SECONDS (22.8-39.4); GLUCOSE 186 mg/dL (74-106); INR 0.96 (0.85-1.17); PROTIME 12.8 SECONDS (11.6-15.0)
[2019-07-20 18:46] LABS: ALBUMIN 3.2 g/dL (3.4-5.0); ALKALINE PHOSPHATASE 111 U/L (30-120); ALT (SGPT) 22 U/L (10-68); BILIRUBIN - TOTAL 0.19 mg/dL (0.2-1.3); CKMB 0.3 U/L (0.0-3.6); CREATINE KINASE 40 UL (21-232); PROTEIN - SERUM 7.4 g/dL (6.4-8.2)
[2019-07-20 18:47] LABS: TROPONIN-I 0.227 ng/mL (0.000-0.060)
--- NOTE | 2019-07-20 23:24 | NUR ---
RECEIVED REPORT FROM RN IN ER. ARRIVED TO THE FLOOR ON A STRETCHER. ALERT AND ORIENTED X4. UP AD BLAINE. IV TO RIGHT HAND SL. NITRO PASTE TO MID CHEST. DENIES ANY PAIN AT THIS TIME.
[2019-07-21 01:23] LABS: BASOPHILS 0.7 % (0-2); HEMATOCRIT 41.5 % (42.0-54.0); HEMOGLOBIN 13.7 g/dL (13.5-17.5); IMMATURE GRANULOCYTES 0.8 % (0-5); LYMPHOCYTES 27.2 % (15-50); MCH 30.4 pg (26.0-34.0); MCV 92.2 fL (80.0-100.0); MEAN PLATELET VOLUME 9.8 fL (7.4-10.4); MONOCYTES 10.9 % (2-11); NEUTROPHILS 58.4 % (40-80); PLATELET COUNT 368 10x3/uL (130-400); RDW 14.2 % (11.5-14.5); WBC 9.2 10x3/uL (4.8-10.8)
[2019-07-21 01:51] LABS: CALC OSMOLALITY 282 mosm/kg (275-300); CALCIUM 9.3 mg/dL (8.5-10.1); CARBON DIOXIDE 26.7 mmol/L (21.0-32.0); CHLORIDE - SERUM 105 mmol/L (98-107); CREATININE - SERUM 0.9 mg/dL (0.6-1.3); GLUCOSE 148 mg/dL (74-106); POTASSIUM - SERUM 3.9 mmol/L (3.5-5.1); SODIUM 140 mmol/L (136-145); UREA NITROGEN 15 mg/dL (7-18); eGFR NON AFRICAN AMERICAN > 90 mL/min (90-120)
[2019-07-21 01:52] LABS: TROPONIN-I 0.227 ng/mL (0.000-0.060)
[2019-07-21 09:42] VITALS: Ht 175.3 cm; Wt 99.2 kg
--- NOTE | 2019-07-21 20:00 | NUR ---
REPORT RECIEVED AND INITIAL ROUNDS COMPLETED. PT RESTING IN BED. ALERT/ORIENTED. INSTRUCT ON NPO AFTER MIDNIGHT FOR HEART CATH IN AM. SR/99 PER TELEMETRY. SALINE LOCK TO RIGHT HAND. CPOC.
--- NOTE | 2019-07-22 06:45 | NUR ---
PT RESTED THROUGH THE NIGHT WITH NO DISTRESS. ONLY ONE REQUEST FOR IV MORPHINE AT THE BEGINNNING OF THE NIGHT. AM PREOP CARE PROVIDED FOR PLANNED HEART CATH. CONSENTS SIGNED AND ON THE CHART. PT HAS BEEN NPO SINCE MIDNIGHT. CPOC.
--- NOTE | 2019-07-22 11:54 | HP ---
PATIENT: ABBY FREITAS MEDICAL RECORD: [id number] ACCOUNT: [id number] LOCATION:[facility] D.2117 : 70 ADMISSION DATE: 07/20/19 PCP: No PCP HISTORY AND PHYSICAL EXAMINATION DIAGNOSES: 1. Non-Q-wave myocardial infarction. 2. Coronary artery disease. 3. Previous percutaneous transluminal coronary angioplasty stent. 4. Hypertension. 5. Hyperlipidemia. 6. Smoking. 7. Chronic obstructive pulmonary disease. 8. Insulin-dependent diabetes. HISTORY OF PRESENT ILLNESS: Mr. Freitas presents with increasing episodes of chest pain. His troponin is positive. He presented 2 weeks ago with this, underwent PTCA stent of a circumflex. He has concomitant disease of the right and LAD. PHYSICAL EXAMINATION: CONSTITUTIONAL/GENERAL APPEARANCE: Well nourished, well developed, appears stated age. EYES: Lids and conjunctivae noninjected. No discharge. No pallor. ENT: Lips within normal limit. No cyanosis. No pallor. NECK: Carotid arteries, bilateral normal upstroke. No bruits. No thrills. No jugular venous pressure or distention. CERVICAL LYMPH NODES: Nontender. Nonenlarged. THYROID: Not enlarged. No nodules. CARDIOVASCULAR: Precordial exam, nondisplaced. No heaves or pericardial thrills. Rate and rhythm, regular. Heart sounds, normal S1, normal S2. No S3, no gallop, no rub. Systolic murmur, not heard. Diastolic murmur, not heard. RESPIRATORY: Respiratory effort, unlabored. Normal curvature. No thoracic deformity. No chest wall tenderness. Percussion, resonant. Auscultation, clear. No wheezes, no rales, no rhonchi. ABDOMEN: Soft, nondistended, nontender. No abdominal pain, no vomiting and normal appetite. MUSCULOSKELETAL: No joint tenderness, normal gait, normal tone. SKIN: Warm and dry. REVIEW OF SYSTEMS: The patient reports easy bruising but reports no swollen glands. The patient reports no fever, no night sweats, no significant weight gain, no significant weight loss. No significant exercise tolerance. The patient reports no dry eyes, no irritation, no vision change. Patient reports no difficulty hearing and no ear pain. Patient reports no frequent nose bleeds or nose and sinus problems. Patient reports on arm pain on exertion. No shortness of breath while lying down. No history of heart murmur. Patient reports no cough, no wheezing or coughing up blood. Patient reports no abdominal pain, no vomiting. Normal appetite. No diarrhea and not vomiting blood. No nausea and no constipation. Patient reports no incontinence. No difficulty urinating. No hematuria. No increased frequency. Patient reports no muscle aches. No weakness, no arthralgias, no back pain. No swelling of the extremities. Patient reports no abnormal mole, no jaundice, no rashes. Reports no loss of consciousness. No weakness and no numbness. No seizures, dizziness, or headaches. The patient reports no depression, no sleep disturbance, feeling HISTORY AND PHYSICAL [id number] ABBY FREITAS safe in a relationship and no alcohol abuse. Patient reports on fatigue. Reports no runny nose or sinus pressure. No itching, no hives, and no frequent sneezing. OVERALL IMPRESSION: Non-Q-wave myocardial infarction. We will proceed with repeat coronary angiography. Further care depends upon findings of the angiography. TRANSINT:[id number] Voice Confirmation ID: [id number] DOCUMENT ID: [id number] ASHLEIGH HERNANDEZ MD at 1154 CC: [id number] DICTATION DATE: 07/21/19 1027 FLEXBOARD OPERATOR: 07/21/19 1053 ADM IN [place] [id number] [place] [address]
--- NOTE | 2019-07-22 15:00 | NUR ---
PRE-OPS GIVEN. TO MANAGER SAP BY BED. WILL CONT. PLAN OF CARE.
--- NOTE | 2019-07-22 16:12 | NUR ---
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 VS WNL. RIGHT GROIN STABLE WITHOUT BLEEDING OR HEMATOMA NOTED. WILL MONITOR.
--- NOTE | 2019-07-22 19:23 | NUR ---
RECEIVED BEDSIDE REPORT. PATIENT IS ALERT AND ORIENTED, RESTING COMFORTABLY IN BED. RESPIRATIONS ARE EVEN AND UNLABORED. NO S/S OF DISTRESS. NO C/O PAIN. CALL LIGHT WITHIN REACH. WILL CPOC.
--- NOTE | 2019-07-22 23:54 | NUR ---
PATIENT RESTING COMFORTABLY IN BED, PLAYIN G ON PHONE. RESPIRATIONS ARE EVEN AND UNLABORED. NO S/S OF DISTRESS. NO C/O PAIN. CALL LIGHT WITHIN REACH. WILL CPOC.
[2019-07-23 08:34] VITALS: BP 122/83
--- NOTE | 2019-07-23 09:07 | NUR ---
UPON ADMIT, PATIENT HAS NOT HAD A FLU SHOT. REFUSED IT UPON DISCHARGE. HE DOES HOWEVER WANT THE [facility] QUITLINE INFO. SHEET FILLED OUT AND FAXED. COPY TO PATIENT.
--- NOTE | 2019-07-23 11:38 | NUR ---
GROIN STABLE. IV AND TELEMETRY DCD. DC PLANS GIVEN. UNDERSTANDING VOICED. ESCORTED TO CAR BY W/C.
--- NOTE | 2019-07-23 17:05 | MORECARE ---
CASE MANAGEMENT DISCHARGE SUMMARY PATIENT: ABBY FREITAS UNIT: [id number] ADM DATE: 07/20/19 AGE: 48 : 70 SEX: M ROOM/BED: D.2117 AUTHOR: MANAV SEBASTIAN PHYSICIAN: REFERRING PHYSICIAN: ASHLEIGH HERNANDEZ MD DATE OF SERVICE: 07/23/19 Discharge Plan Patient Name: ABBY FREITAS Facility: [facility]:[place] : 1970 Planned Disposition: Home Anticipated Discharge Date: 07/23/19 Discharge Date: 07/23/2019 Expected LOS: 3 Initial Reviewer: [email or web address] Initial Review Date: 07/23/2019 Generated: 07/23/19 6:05 pm DCPIA - Discharge Planning Initial Assessment Updated by [email or web address]: Delonte Alexander on 07/23/19 5:04 pm * Is the patient Alert and Oriented? Yes * How many steps to enter\exit or inside your home? NONE * PCP DR. ROSAS, [facility] * Pharmacy [facility] IN [place] * Preadmission Environment Home with Family * ADLs Independent * Equipment None * Other Equipment NO MEDICAL EQUIPMENT PROVIDER PREFERECE * List name and contact numbers for known caregivers / representatives who currently or will assist patient after discharge: BREANN OR BINH FREITAS, PARENTS, * Verbal permission to speak to the caregivers and representatives has been obtained from the patient. N/A * Community resources currently utilized None * Please name any agencies selected above. NONE * Additional services required to return to the preadmission environment? No * Can the patient safely return to the preadmission environment? Yes * Has this patient been hospitalized within the prior 30 days at any hospital? Yes Coverage Notice Reviewer: [id number] - Delonte Alexander Notice Issued Date-Time: 07/23/2019 9:20 Notice Type: IM Discharge Notice Notice Delivered To: Patient Relationship to Patient: Rail Switch Operator Name: Delivery Method: HAND - Hand Delivered Sury Days: Prior Verbal Notification: Recipient Understood Notice: Yes Recipient Signature: Yes Med Rec Note Co-signed by Attending: Coverage Notice Comment: Patient Name: ABBY FREITAS Page [id number] at 1705 All edits/amendments must be made on the electronic document DICTATION DATE: 07/23/191704 SALES ENGINEERING MANAGER: MIYA 07/23/191704 RPT#: [id number] DC DATE:07/23/19 STATUS: DIS IN [facility] [address] [place] [address] END OF REPORT
--- NOTE | 2019-07-23 17:14 | MORECARE ---
CASE MANAGEMENT DISCHARGE SUMMARY PATIENT: ABBY FREITAS UNIT: [id number] ADM DATE: 07/20/19 AGE: 48 : 70 SEX: M ROOM/BED: D.2117 AUTHOR: JAZ,DOC PHYSICIAN: REFERRING PHYSICIAN: ASHLEIGH HERNANDEZ MD DATE OF SERVICE: 07/23/19 Discharge Plan Patient Name: ABBY FREITAS Facility: [facility]:[place] : 1970 Planned Disposition: Home Anticipated Discharge Date: 07/23/19 Discharge Date: 07/23/2019 Expected LOS: 3 Initial Reviewer: [email or web address] Initial Review Date: 07/23/2019 Generated: 07/23/19 6:13 pm Comments DCP- Discharge Planning Updated by [email or web address]: Delonte Alexander on 07/23/19 4:[address] Patient Name: ABBY FREITAS Admission Status: ER Accout number: [id number] Admission Date: 07-20-2019 : 1970 Admission Diagnosis: Attending: ARIEL HERNANDEZ Current LOS: 3 Anticipated DC Date: 07-23-2019 Planned Disposition: Home Primary Insurance: MEDICARE A & B Discharge Planning Comments: CM MET WITH PT IN ROOM TO DISCUSS DISCHARGE PLANNING AND NEEDS. PT REPORTS LIVING AT HOME INDEPENDENTLY WITH HIS PARENTS. PT HAS NO MEDICAL EQUIPMENT AND NO OUTSIDE SERVICES ASSISTING IN THE HOME. CM DISCUSSED AVAILABILITY OF HOME HEALTH, REHAB SERVICES AND MEDICAL EQUIPMENT. PT DENIES DISCHARGE NEEDS, REPORTS HIS PARENTS WILL PICK HIM UP FOR DISCHARGE HOME. IMPORTANT MESSAGE FROM MEDICARE PROVIDED AND EXPLAINED. Home Health Aide Caregiver: Delonte Alexander DCPIA - Discharge Planning Initial Assessment Updated by [id number]: Delonte Alexander on 07/23/19 5:04 pm * Is the patient Alert and Oriented? Yes * How many steps to enter\exit or inside your home? NONE * PCP DR. RSOAS, [facility] * Pharmacy [facility] IN [place] * Preadmission Environment Home with Family * ADLs Independent * Equipment None * Other Equipment NO MEDICAL EQUIPMENT PROVIDER PREFERECE * List name and contact numbers for known caregivers / representatives who currently or will assist patient after discharge: BREANN OR BINH FREITAS, PARENTS, * Verbal permission to speak to the caregivers and representatives has been obtained from the patient. N/A * Community resources currently utilized None * Please name any agencies selected above. NONE * Additional services required to return to the preadmission environment? No * Can the patient safely return to the preadmission environment? Yes * Has this patient been hospitalized within the prior 30 days at any hospital? Yes Coverage Notice Reviewer: [email or web address] Sukhdev Alexander Notice Issued Date-Time: 07/23/2019 9:20 Notice Type: IM Discharge Notice Notice Delivered To: Patient Relationship to Patient: Founder Name: Delivery Method: HAND - Hand Delivered Sury Days: Prior Verbal Notification: Recipient Understood Notice: Yes Recipient Signature: Yes Med Rec Note Co-signed by Attending: Coverage Notice Comment: Last DP export: 07/23/19 4:05 p Patient Name: ABBY FREITAS Page [phone] at 1714 All edits/amendments must be made on the electronic document DICTATION DATE: 07/23/191712 LEASING ASSISTANT: MIYA 07/23/191712 RPT#: [id number] DC DATE:07/23/19 STATUS: DIS IN [facility] [address] [place] [address] END OF REPORT
--- NOTE | 2019-07-25 16:48 | OP ---
PATIENT NAME: ABBY FREITAS MEDICAL RECORD: [id number] :70 LOCATION:D.M2 D.2117 ADMISSION DATE:07/20/19 SURGEON: ASHLEIGH HERNANDEZ MD DATE OF OPERATION: 07/22/2019 PROCEDURES: 1. PTCA stent RCA and RCA PDA. 2. PTCA stent left circumflex. 3. IFR RCA. 4. IFR left circumflex. 5. Selective coronary angiography. INDICATION: Angina and coronary artery disease. DESCRIPTION OF PROCEDURE: After informed consent was obtained and after detailed description of risks, benefits as well as alternative therapies, the patient elected to proceed with angiogram and angioplasty. The right femoral area was prepped and draped in normal sterile fashion. Right femoral artery was cannulated via modified Seldinger technique with placement of 6-Belarusian sheath. All catheters exchanged through this sheath. FINDINGS: The RCA has 80% stenosis. PDA 90% to 95% stenosis. IFR was abnormal. RCA was addressed with a 3.5 x 15 mm Doerun, the PDA with a 2.5 x 15 mm Doerun. Result was 0% residual stenosis. PTCA STENT OF THE LEFT CIRCUMFLEX: The circumflex has 70% to 80% stenosis at its ostium. An IFR was abnormal, it was addressed with a 3.0 x 12 mm Doerun. Result was 0% residual stenosis. OVERALL IMPRESSION: Successful PTCA stent of the RCA and left circumflex, both going from 80% to 95% initial stenosis to 0% residual. TRANSINT:[id number] Voice Confirmation ID: [id number] DOCUMENT ID: [id number] ASHLEIGH HERNANDEZ MD at 1648 CC: [id number] DICTATION DATE: 07/22/19 1546 DISPLAY COORDINATOR: 07/23/19 0150 DIS IN 07/23/19 [place] [id number] [place] [id number]
== END 2019-07-23 11:39 | disposition home or self-care (01) | DRG 247 ==
LOC: D.ER 16:35 → D.M2 18:22
PROVIDERS: Family Medicine; ADMIT Internal Medicine Interventional Cardiology; ATTEND Internal Medicine Interventional Cardiology
PROC: 027236Z Dilation of Coronary Artery, Three Arteries with Three Drug-eluting Intraluminal Devices, Percutaneous Approach (ICD-10-PCS; principal; 2019-07-22)
PROC: 4A033BC Measurement of Arterial Pressure, Coronary, Percutaneous Approach (ICD-10-PCS; 2019-07-22)
PROC: 4A023N7 Measurement of Cardiac Sampling and Pressure, Left Heart, Percutaneous Approach (ICD-10-PCS; 2019-07-22)
PROC: B2111ZZ Fluoroscopy of Multiple Coronary Arteries using Low Osmolar Contrast (ICD-10-PCS; 2019-07-22)
PROC: B2151ZZ Fluoroscopy of Left Heart using Low Osmolar Contrast (ICD-10-PCS; 2019-07-22)
DX: I21.4 Non-ST elevation (NSTEMI) myocardial infarction (principal); J44.9 Chronic obstructive pulmonary disease, unspecified; I10 Essential (primary) hypertension; E78.5 Hyperlipidemia, unspecified; E11.9 Type 2 diabetes mellitus without complications; Z79.4 Long term (current) use of insulin; I25.119 Atherosclerotic heart disease of native coronary artery with unspecified angina pectoris; Z72.0 Tobacco use

== ENCOUNTER 2020-09-29 12:32 | Day surgery (SDC) | payer MEDICARE ==
[~2020-09-29] VITALS: Ht 175.3 cm; Wt 98.2 kg
--- NOTE | ~2020-09-29 | HEMODYNAMI ---
PATIENT:ABBY FREITAS MEDICAL RECORD: [id number] : 70 LOCATION:[place] ADMISSION DATE: 09/29/20 Generatedon:115:54 Patient name: ABBY FREITAS Patient #: [id number] SSN: [id number] : 1970 Date of study: 09/29/2020 Page: Of Hemodynamic Procedure Report Patient Data Patient Demographics Procedure consent was obtained First Name: ABBY Gender: Male Last Name: ZENA : 1970 Middle Initial: D Age: 49 year(s) Patient #: [id number] Race: SSN: [id number] Additional ID: [id number] Contact details [address]: [address] [place] [address] State: [place] City: [place] Zip code: [address] Past Medical History Allergies Allergen Reaction Date Comments Reported Other allergy 07/07/2019 keflex Other allergy 07/22/2019 CEPHALAXIN Admission Admission Data Admission Date: 09/29/2020 Admission Time: 12:32 Arrival Date: 09/29/2020 Arrival Time: 13:30 Admit Source: Other Insurance Payor: Medicare [facility] #: [id number] Height (in.): 68.9 BSA: 2.13 (m2) Height (cm.): 175 BMI: 32 (kg/m2) Weight (lbs.): 216.05 Weight (kg.): 98 Lab Results Lab Result Date: 09/29/2020 Lab Result Time: 0:00 Biochemistry Name Units Result Min Max BUN mg/dl 12 --(-*--)-- 7 18 Creatinine mg/dl 1.1 --(--*-)-- 0.6 1.3 CBC Name Units Result Min Max Hemoglobin g/dl 15.2 --(-*--)-- 13.5 17.5 Procedure Procedure Types Cath Procedure Diagnostic Procedure LHC LHC w/Coronaries Sedation Charges Moderate Sedation 10-24 minutes Procedure Description Procedure Date Procedure Date: 09/29/2020 Procedure Start Time: 15:31 Procedure End Time: 15:40 Procedure Staff Name Function Norberto Oliver MD Performing Physician Arianna Graf RT Monitor Taya Gonzales RT Scrub Jayleen Longoria RN Nurse Byron Aguilar RN Nurse Procedure Data Cath Procedure Fluoroscopy Diagnostic fluoroscopy Total fluoroscopy Time: 1.4 time: 1.4 min min Diagnostic fluoroscopy Total fluoroscopy dose: 683 dose: 683 mGy mGy Contrast Material Contrast Material Type Amount (ml) Isovue 300 208 Entry Location Entry Primary Successful Side Size Upsize Upsize Entry Closure Succes sful Closure Location (Fr) 1 (Fr) 2 (Fr) Remarks Device Remarks Femoral Right 5 Fr Exoseal artery Estimated blood loss: 5 ml Diagnostic catheters Device Type Used For End Catheter Placement MULTIPACK JL 4.0 5Fr Left Coronary catheter Angiography MULTIPACK 3DRC 5Fr Right Coronary catheter Angiography MULTIPACK Pigtail 5 Fr LV Angiography catheter Procedure Complications No complications Procedure Medications Medication Administration Route Dosage Heparin Flush Bag added to field 2 bags (1000units/500ml NS) 0.9% NaCl I.V. 100 ml/hr Oxygen etCO2 Nasal cannula 2 l/min Lidocaine 2% added to field 20 Fentanyl I.V. 50 mcg Fentanyl I.V. 50 mcg Fentanyl I.V. 50 mcg Versed I.V. 1 mg Versed I.V. 1 mg Versed I.V. 1 mg Hemodynamics Rest BSA: 2.13 (m2) HGB: 15.2 (g/dl) O2 Consumption: Estimated: 268.14 (ml/min) O2 Co nsumption indexed: Estimated:125.89 (ml/min/m) Heart Rate: 86 (bpm) Pressure Samples Time Site Value (mmHg) Purpose Heart Use Rate(bpm) 15:37 LV 98/0,-5 Snapshot 28 Gradients Valve Time Site Site Mean SEP/DFP Peak To Heart Use 1 2 (mmHg) (sec/min) Peak Rate (mmHg) (bpm) Aortic 15:38 LV AO 66 Snapshots Pre Cath Intra NCS Post Cath Vital Signs Time Heart Resp SPO2 etCO2 NIBP (mmHg) Rhythm Pain Sedation Rate (ipm) (%) (mmHg) Status Level (bpm) 15:24:58 85 10 100 29 131/98(109) NSR 0 (11) 10(A) , No pain 15:29:49 93 14 99 12.6 126/94(108) NSR 0 (11) 9(A) , No pain 15:34:07 90 24 85 12.6 128/80(98) NSR 0 (11) 9(A) , No pain 15:38:19 100 20 95 0 105/80(91) NSR 0 (11) 10(A) , No pain Medications Time Medication Route Dose Verified Delivered Reason Notes Eff ectiveness by by 15:18:06 Heparin Flush added 2 Norberto Thornton used for Bag to bags [facility] procedure (1000units/500ml field MD ANAYA NS) 15:18:19 0.9% NaCl I.V. 100 Norbertojoshua Clemens used for ml/hr Melody Longoria smoked meat preparer 15:18:30 Oxygen etCO2 2 Norberto Clemens used for Nasal l/min [place] Longoria smoked meat preparer cannula 15:18:43 Lidocaine 2% added 20ml Norberto Thornton for local to vial [facility] anesthetic field MD ANAYA 15:28:42 Fentanyl I.V. 50 Norberto Byron for mcg [place] Jeff RN sedation 15:28:53 Versed I.V. 1 mg Norberto Byron for [place] Jeff RN sedation 15:30:11 Versed I.V. 1 mg Norberto Byron for [place] Jeff RN sedation 15:30:43 Fentanyl I.V. 50 Norberto Byron for mcg [place] Jeff RN sedation 15:32:44 Fentanyl I.V. 50 Norberto Byron for [facility] RN sedation 15:32:53 Versed I.V. 1 mg Norberto Byron for [facility] RN sedation Procedure Log Time Note 15:11:15 Jayleen Longoria RN sent for patient. Start room use. 15:15:10 Diagnostic Cath Status : Elective 15:17:57 Arrival Date: 09/29/2020 1:30:00 PM 15:18:06 Heparin Flush Bag (1000units/500ml NS) 2 bags added to field was administered by Norberto Oliver MD; used for procedure; Verbal order read back and verified. 15:18:19 0.9% NaCl 100 ml/hr I.V. was administered by Jayleen Longoria RN; used for procedure; Verbal order read back and verified. 15:18:23 Patient Height : 68.9 inches 15:18:27 Patient Weight : 216.05 lbs 15:18:28 Admit Source: Other 15:18:30 Oxygen 2 l/min etCO2 Nasal cannula was administered by Jayleen Longoria RN; used for procedure; Verbal order read back and verified. 15:18:32 Insurance Payor : Medicare 15:18:43 Lidocaine 2% 20ml vial added to field was administered by Norberto Oliver MD; for local anesthetic; Verbal order read back and verified. 15:21:13 Procedure Status Elective Heart Cath (OP). 15::21 Time tracking: Regular hours (M-F 7:00 - 5:00) 15::26 Plan of Care:Hemodynamics will remain stable., Cardiac rhythm will remain stable., Comfort level will be maintained., Respiratory function will remain adequate., Patient/ family verbilizes understanding of procedure., Procedure tolerated without complication., Recovers from procedure without complications.. 15:21:31 Patient received from Pre/Post Procedure Room to [facility] Alert and oriented. Tansferred to table in Supine position. 15:21:33 Signed procedure consent form obtained from patient. 15:21:34 Warm blankets applied, and keyona hugger turned on for patient comfort. 15:21:34 Correct patient and procedure confirmed by team. 15:21:37 ECG and BP/O2 sat monitors applied to patient. 15:23:53 Vital chart was started 15:25:48 Baseline sample Acquired. 15:25:54 Rhythm: sinus tachycardia 15:25:56 Full Disclosure recording started 15:26:01 H&P Date Dictated: 09/29/2020 Within 30 days and on chart., H&P Addendum completed by physician on day of procedure. (MUST COMPLETE FOR ALL OUTPATIENTS). 15:26:02 Pre-procedure instructions explained to patient. 15:26:03 Pre-op teaching completed and patient verbalized understanding. 15:26:05 Family unavailable. 15:26:09 Patient NPO since Midnight. 15:26:11 Is the patient allergic to Iodine/contrast media? No. 15:26:12 Was the patient premedicated? Yes 15:26:14 Is patient on blood thinner?Yes 15:26:16 Patient diabetic? Yes. 15:26:18 If diabetic: On Metformin? No 15:26:20 Previous problem with sedation/anesthesia? No ? 15:26:22 Snore? Yes 15:26:23 Sleep apnea? No 15:26:24 Deviated septum? No 15:26:25 Opens mouth fully? Yes 15:26:26 Sticks out tongue? Yes 15:26:29 Airway obstruction? Yes COPD 15:26:32 Dentures? No ? 15:26:37 Pre procedure: right dorsailis pedis pulse 2+ Normal; easily identifiable; not easily obliterated 15::40 Pre procedure: left dorsailis pedis pulse 2+ Normal; easily identifiable; not easily obliterated 15::42 Patient pain scale 0/10 ?. 15:26:59 IV patent on arrival in right antecubital with 0.9% NaCl at [facility]. 15:27:08 Lab results completed and on chart. 15:27:13 Right groin area was prepped with chlora-prep and draped in sterile fashion 15:27:14 Alarms reviewed by R. N. 15:27:14 Sharps counted by scrub and verified by R.N. 15:27:16 Physician arrived 15:27:17 --------ALL STOP TIME OUT------ 15:27:18 Final Timeout: patient, procedure, and site verified with staff and physician. All members of the team are in agreement. 15:27:19 Right groin site verified by team. 15:27:22 Fire Safety Assessment: A--An alcohol-based skin anteseptic being used preoperatively., C--Open oxygen or nitrous oxide is being used., D--An ESU, laser, or fiber-optic light is being used. 15:27:26 Physical assessment completed. ASA score P 2 - A patient with mild systemic disease as per Norberto Oliver MD. 15:27:31 Sedation plan: IV Moderate Sedation Medication:Versed, Fentanyl 15:28:22 2) 60-89 Mildly reduced kidney function, and other findings (as for stage 1) point to kidney disease. 15:28:42 Fentanyl 50 mcg I.V. was administered by Byron Aguilar RN; for sedation; Verbal order read back and verified. 15:28:53 Versed 1 mg I.V. was administered by Byron Aguilar RN; for sedation; Verbal order read back and verified. 15:29:11 Maximum allowable contrast dose (3.7 X eGFR X 0.75)208 ml. 15:29:18 Use device set Femoral Dx 15:29:19 ACIST Syringe (73674) opened to sterile field. 15:29:19 Bag Decanter (2002S) opened to sterile field. 15:29:20 Medline Cath Pack ([id number]) opened to sterile field. 15:29:21 ACIST Hand Control (80794) opened to sterile field. 15:29:22 ACIST Manifold (52974) opened to sterile field. 15:29:22 DIAGNOSTIC Multipack 5Fr catheter set (GV4879) opened to sterile field. 15:29:23 Tegaderm 4 x 4 (1626W) opened to sterile field. 15:29:24 SHEATH 5FR Hosford (RGC977) opened to sterile field. 15:29:24 EMERALD Guide Wire (502-484) opened to sterile field. 15:29:30 Procedure started. 15:30:11 Versed 1 mg I.V. was administered by Byron Aguilar RN; for sedation; Verbal order read back and verified. 15:30:43 Fentanyl 50 mcg I.V. was administered by Byron Aguilar RN; for sedation; Verbal order read back and verified. 15:31:12 Local anesthetic to right femoral artery with Lidocaine 2% by Norberto Oliver MD.INITIAL ACCESS ONLY 15:31:19 A 5 Fr sheath was inserted into the Right Femoral artery 15:32:03 Lab Result : Hemoglobin 15.2 g/dl 15:32:03 Lab Result : Creatinine 1.1 mg/dl 15:32:03 Lab Result : BUN 12 mg/dl 15:32:25 ACC The patient was administered the following blood thiners within the last 24 hours: ACCPlavix 15:32:44 Fentanyl 50 mcg I.V. was administered by Byron Aguilar RN; for sedation; Verbal order read back and verified. 15:32:53 Versed 1 mg I.V. was administered by Byron Aguilar RN; for sedation; Verbal order read back and verified. 15:33:05 A MULTIPACK JL 4.0 5Fr catheter was advanced over the wire and used for Left Coronary Angiography. 15:34:00 LCA angiography performed. 15:34:03 Injector settings: Ml/sec: 3, Volume: 6, 15:35:09 Catheter removed. 15:35:14 A MULTIPACK 3DRC 5Fr catheter was advanced over the wire and used for Right Coronary Angiography. 15:35:48 RCA angiography performed. 15:35:50 Injector settings: Ml/sec: 3, Volume: 6, 15:36:39 Catheter removed. 15:36:50 A MULTIPACK Pigtail 5 Fr catheter was advanced over the wire and used for LV Angiography. 15:37:59 LV hemodynamics recorded. 15:38:01 LV gram done using PARKER 15:38:03 Injector settings: Ml/sec: 5, Volume: 15, 15:38:13 EF : 15 % 15:38:21 Catheter removed. 15:38:24 EXOSEAL 5Fr (EX500) opened to sterile field. 15:38:51 Sheath removed intact; hemostasis achieved with Exoseal to the Right Femoral artery. 15:38:53 Procedure ended.(Physican Out) 15:39:03 Fluoroscopy time 01.40 minutes. 15:39:07 Fluoroscopy dose: 683 mGy 15:39:07 Flurop Dose total: 683 15:39:13 Dose Area Product 32903 mGy/cm. 15:39:16 Contrast amount:Isovue 300 208ml. 15:39:19 Maximum allowable dose exceeded? No. 15:39:20 Sharps counted by scrub and verified by R.N. 15:39:21 Insertion/operative site no bleeding no hematoma. 15:39:24 Post-op/insertion site Right Femoral artery dressed using a 4 x 4 and Tegaderm. 15:39:27 Post right femoral artery:stable 15:39:41 Post Procedure Pulses reassessed and unchanged 15:39:44 Post procedure rhythm: unchanged. 15:39:53 Estimated blood loss: 5 ml 15:39:55 Post procedure instruction explained to patient.Patient verbalizes understanding. 15:39:56 Patient needs reinforcement of post procedure teaching. 15:40:22 Procedure type changed to Cath procedure, Diagnostic procedure, LHC, [facility] w/Coronaries, Sedation Charges, Moderate Sedation 10-24 minutes 15:40:22 Procedure and supply charges have been captured, reviewed, submitted and are correct. 15:40:27 Procedure Complication : No complications 15:40:31 Vital chart was stopped 15:40:34 [facility] Findings: MVD- MD will discuss options w/ pt 15:40:36 Operative report dictated upon procedure completion. 15:40:36 See physician's report for complete and final results. 15:40:44 Report given to Pre/Post Procedure Room. 15:40:46 Patient transfered to Pre/Post Procedure Room with Stretcher. 15:40:48 Procedure ended. 15:40:48 Full Disclosure recording stopped 15:40:52 End room use (Document Last) 15:41:53 End room use (Document Last) 15:42:41 End room use (Document Last) Device Usage Item Name Manufacture Quantity Catalog Hospital Part Current Minimal L ot# / Number Charge Number Stock Stock Serial# Code ACIST Acist 1 59030 270554 616742 397965 20 Syringe Medical (98274) Systems Inc Bag Microtek 1 664111 47462 687924 5 Decanter Medical Inc. () Medline Medline 1 [id number] 532207 88524 354233 5 Cath Pack ([id number]) ACIST Hand Acist 1 64854 302625 805128 923468 5 Control Medical (53394) Systems Inc ACIST Acist 1 72548 302970 211329 455943 5 Manifold Medical (39703) Systems Inc DIAGNOSTIC Cardinal 1 WH1261 393489 87871 911019 30 Multipack Health 5Fr catheter set (DG5007) Tegaderm 4 3M 1 1626W 753693 491156 411985 5 x 4 (1626W) SHEATH 5FR Terumo 1 EGX083 317457 062189 032921 5 Hosford (BCB413) EMERALD Cardinal 1 502-455 162378 346914 552348 5 Guide Wire Health (502-455) MULTIPACK Cardinal 1 072430 5 JL 4.0 5Fr Health catheter MULTIPACK Cardinal 1 576145 5 3DRC 5Fr Health catheter MULTIPACK Cardinal 1 014852 5 Pigtail 5 Health Fr catheter EXOSEAL 5Fr Cardinal 1 EX500 055981 929447 146135 10 (EX500) Health Signature Audit [place] Stage Time Signature Unsigned Intra-Procedure 09/29/2020 Arianna Graf 3:41:53 PM RT(R) Intra-Procedure 09/29/2020 Byron Aguilar RN 3:42:41 PM Intra-Procedure 09/29/2020 Norberto Couch 3:54:22 PM Jonah [facility] [address] [place] [address]
[~2020-09-29 12:32] MED LIST changes: +ASPIRIN81 MG PO; +COZAAR25 MG PO; +GABAPENTIN300 MG PO; +LIPITOR10 MG PO; +PLAVIX75 MG PO
[2020-09-29] MEDS ORDERED: K-DUR20 MEQ PO (13:03)
[2020-09-29] MEDS ORDERED: LIPITOR40 MG PO (13:04)
[2020-09-29] MEDS ORDERED: MINIPRESS2 MG PO (13:04)
[2020-09-29] MEDS ORDERED: NITROSTAT0.4 MG SL (13:05)
[2020-09-29] MEDS ORDERED: LASIX20 MG PO (13:05)
[2020-09-29] MEDS ORDERED: OMEPRAZOLE40 MG PO (13:07)
[2020-09-29 13:08] VITALS: BP 133/89; Ht 175.3 cm; Wt 98.2 kg
[2020-09-29 14:29] LABS: BASOPHILS 0.5 % (0-2); EOSINOPHILS 1.3 % (0-7); HEMATOCRIT 45.1 % (42.0-54.0); HEMOGLOBIN 15.2 g/dL (13.5-17.5); IMMATURE GRANULOCYTES 0.5 % (0-5); LYMPHOCYTE ABS# 1.74 10x3/uL (1.32-3.57); LYMPHOCYTES 21.9 % (15-50); MCH 30.8 pg (26.0-34.0); MCHC 33.7 g/dL (31.0-37.0); MCV 91.3 fL (80.0-100.0); MEAN PLATELET VOLUME 11.6 fL (7.4-10.4); MONOCYTES 9.7 % (2-11); NEUTROPHIL ABS# 5.26 10x3/uL (1.78-5.38); NEUTROPHILS 66.1 % (40-80); RBC 4.94 10x6/uL (4.20-6.10); RDW 15.6 % (11.5-14.5)
[2020-09-29 14:32] LABS: PLATELET COUNT 233 10x3/uL (130-400)
[2020-09-29 14:48] LABS: ALT (SGPT) 18 U/L (10-68); CALC OSMOLALITY 281 mosm/kg (275-300); CALCIUM 9.2 mg/dL (8.5-10.1); CARBON DIOXIDE 23.4 mmol/L (21.0-32.0); CHLORIDE - SERUM 104 mmol/L (98-107); CHOL - HDL RATIO 4.5 ratio (2.3-4.9); CHOLESTEROL, TOTAL 157 mg/dL (0-200); CREATININE - SERUM 1.1 mg/dL (0.6-1.3); HDL CHOLESTEROL 35 mg/dL (32-96); LDL CHOLESTEROL 91 mg/dL (0-100); LDL-HDL RATIO 2.6 ratio (1.5-3.5); POTASSIUM - SERUM 4.1 mmol/L (3.5-5.1); SODIUM 138 mmol/L (136-145); TRIGLYCERIDE 158 mg/dL (30-200); UREA NITROGEN 12 mg/dL (7-18); eGFR NON AFRICAN AMERICAN 75 mL/min (90-120)
[2020-09-29 14:51] LABS: GLUCOSE 209 mg/dL (74-106)
--- NOTE | 2020-09-29 15:55 | NUR ---
ARRIVES TO ROOM 4 VIA STRETCHER FROM [facility] PSYCHOLOGY FACULTY MEMBER S/P CATH. SEE CERTIFIED NURSE MIDWIFE. PT DENIES PAIN OR NEEDS. IV INFUSING PER ORDERS, CALL LIGHT WITHIN REACH
--- NOTE | 2020-09-29 16:10 | NUR ---
PT WITH EYES CLOSED AROUSES TO VERBAL AND TOUCH, VSS, SR WITH NO ECTOPY, SATS 98% 2LNC, RIGHT GROIN SOFT WITH NO OOZING OR BLEEDING NO PALPABLE HEMATOMA, EXTREMITY WARM AND DRY AND PEDAL PULSE PALPABLE, PT DENIES PAIN OR NEEDS, CALL LIGHT WITHIN REACH, IV INFUSING PER ORDERS
[2020-09-29] MEDS ORDERED: LOSARTAN-HCTZ1 EAC1 PO (16:13)
--- NOTE | 2020-09-29 16:25 | NUR ---
RESTING QUIETLY AROUSES EASILY, VSS, SR, SATS 98% RA, RIGHT GROIN STABLE WITH NO BLEEDING OR OOZING , NO PALPABLE HEMATOMA, PEDAL PULSE PALPABLE, DENIES PAIN OR NEEDS, IV INFUSING PER ORDERS, CALL LIGHT WITHIN REACH
--- NOTE | 2020-09-29 16:40 | NUR ---
PT IS AWAKE AND ALERT ,FOLLOWS ALL COMMANDS, VSS, SR, SATS 98 ON RA, RIGHT GROIN SOFT WITH NO OOZING OR BLEEDING NO PALABLE HEMATOMA, PEDAL PULSE PALPABLE, DENIES PAIN OR NEEDS AT PRESENT, IV INFUSING PER ORDERS , CALL LIGHT WITHIN REACH.
--- NOTE | 2020-09-29 16:58 | NUR ---
PT PLACED IN SEMI FOWLERS POSITION, SANDWICH BOX AND PO FLUIDS GIVEN, PT DENIES PAIN OR NEEDS, RIGHT GROIN STABLE
--- NOTE | 2020-09-29 17:10 | NUR ---
PT SITTING UP IN BED, RIGHT GROIN STABLE WITH NO OOZING OR BLEEDING , NO PALPABLE HEMATOMA, EXTREMITY WARM AND PEDAL PULSE PALPABLE, RA SATS 97%, PT FOLLOWS ALL COMMANDS AND DENIES PAIN OR NEEDS, PT CONSUMED 100% OF SANDWICH BOX. CALL LIGHT WITHIN REACH.
--- NOTE | 2020-09-29 17:45 | NUR ---
PT RESTING QUIETLY, DENIES PAIN OR NEEDS, VSS, SR , SATS 98% RA, RIGHT GROIN STABLE , NO BLEEDING OR OOZING , NO PALPABLE HEMATOMA, PEDAL PULSE PALPABLE, DISCHARGE TEACHING STARTED AND COMPLETED, PT VERBALIZES UNDERSTANDING, PT QUESTIONS AND CONCERNS ADDRESSED. 22G IV REMOVED FROM RT AC CATHETER INTACT 2 X 2 DRESSING APPLIED. PT AMBULATES TO BATHROOM WITHOUT DIFFICULTY. PT DRESSES WITH OUT NEED OF ASSISTANCE.
--- NOTE | 2020-09-29 18:07 | NUR ---
PT DISCHARGED ORDERED , PT TAKEN TO FRIENDS VEHICLE VIA WHEELCHAIR PT HAD NO PAIN OR NEEDS, AND RIGHT GROIN WAS STABLE
--- NOTE | 2020-09-30 13:38 | HP ---
PATIENT: ABBY FREITAS MEDICAL RECORD: [id number] ACCOUNT: [id number] LOCATION:[facility] : 70 ADMISSION DATE: 09/29/20 PCP: No PCP HISTORY AND PHYSICAL EXAMINATION HISTORY OF PRESENT ILLNESS: A 49-year-old gentleman with history of coronary artery disease, status post intervention, had recurrent angina as well as myopathic type symptomatology, underwent Cardiolite stress test which showed reduced LV function as well as some reversibility along the inferior wall, is being evaluated for restenosis versus progression of [place] disease. PAST MEDICAL HISTORY: Includes; 1. History of hypertension. 2. Hyperlipidemia. 3. Coronary artery disease as described above. 4. Cardiomyopathy. 5. Diabetes mellitus. ALLERGIES: KEFLEX. MEDICATIONS: Include insulin per scale, Lasix 20 mg p.o. every day, aspirin 81 every day, Coreg 6.25 b.i.d., atorvastatin 40 every day and Plavix 75 every day. PHYSICAL EXAMINATION: GENERAL: Pleasant, in no acute distress, appears stated age. HEENT: Normocephalic, atraumatic. NECK: No JVD or bruit. HEART: Regular. S3 gallop is noted. LUNGS: Fair excursion. ABDOMEN: Soft and nontender. EXTREMITIES: Pulses 2+. No edema. PLAN: For diagnostic angiography. Intervention based on the above. TRANSINT:[id number] Voice Confirmation ID: [id number] DOCUMENT ID: [id number] KAREN VALENCIA MD at 1338 CC: [id number] DICTATION DATE: 09/29/20 1417 CONSTRUCTION COST ESTIMATOR: 09/29/20 1518 [facility] 09/29/[address] [address]
--- NOTE | 2020-09-30 13:38 | OP ---
PATIENT NAME: ABBY FREITAS MEDICAL RECORD: [id number] :70 LOCATION:[facility] ADMISSION DATE: SURGEON: KAREN VALENCIA MD DATE OF OPERATION: 09/29/2020 PROCEDURE: Left heart catheterization, selective coronary angiography, right femoral artery approach. CATHETERS: A 5-Slovak sheath, 5/4 left and right Patrick, 5/4 pig. The procedure was well tolerated. The patient was returned to the [place]. Sheath removed. ExoSeal device was placed. FINDINGS: Left ventriculography in 30-degree PARKER view: Severe global hypokinesis, reduced EF, estimated EF 15% to 20%. CORONARY ANATOMY: Left main: Left main is free of disease. LAD: Totally occluded, fills extremely well via right to left collaterals. Circumflex: Previously placed stent is widely patent. Right coronary artery: Dominant artery, widely patent, fills via left via collaterals. IMPRESSION: Patent stent. Excellent collaterals to LAD. Symptomatology appears to be coming from severe cardiomyopathy. We will add ARB to his underlying beta blockade, maybe switch from Aldactone in the future. Further recommendations based on the above. TRANSINT:[id number] Voice Confirmation ID: [id number] DOCUMENT ID: [id number] KAREN VALENCIA MD at 1338 CC: [id number] DICTATION DATE: 09/29/20 1546 COMPUTER PROGRAMMING SUPERVISOR: 09/29/20 1900 [facility] 09/29/20 [facility] [address] [place] [address]
== END 2020-09-29 18:00 | disposition home or self-care (01) ==
LOC: D.CATH 12:32
PROVIDERS: ATTEND Internal Medicine Interventional Cardiology
DX: I25.119 Atherosclerotic heart disease of native coronary artery with unspecified angina pectoris (principal); I10 Essential (primary) hypertension; E78.5 Hyperlipidemia, unspecified; E11.9 Type 2 diabetes mellitus without complications; I42.9 Cardiomyopathy, unspecified; R94.39 Abnormal result of other cardiovascular function study